=== PATIENT | male | born 2000 | race Caucasian/White ===

== ENCOUNTER 2021-09-16 21:17 | Emergency (ER) | payer BC, OTHER ==
[~2021-09-16] VITALS: Ht 182.9 cm; Wt 61.4 kg
[~2021-09-16 21:17] MED LIST changes: -AMOXICILLIN 8751 TAB PO; -WELLBUTRIN XL300 M1 PO
[2021-09-16 21:26] VITALS: TEMP 98.1
[2021-09-16] MEDS ORDERED: AMOXICILLIN 8751 TAB PO (23:55)
[2021-09-17 00:58] VITALS: BP 115/75; PULSE 90
[2021-09-19] MEDS ORDERED: WELLBUTRIN XL300 M1 PO (12:19)
== END 2021-09-17 00:58 | disposition home or self-care (01) ==
LOC: COL.ER 21:17
DX: S61.531A Puncture wound without foreign body of right wrist, initial encounter (principal); S50.811A Abrasion of right forearm, initial encounter; Z20.3 Contact with and (suspected) exposure to rabies; W55.01XA Bitten by cat, initial encounter

== ENCOUNTER → 2021-09-16 | Outpatient (REF) | payer BC, OTHER ==
[~2021-09-16] VITALS: Ht 182.9 cm; Wt 62.4 kg
[~2021-09-16] MED LIST: AMOXICILLIN 8751 TAB PO; PRILOSEC 20MG20 MG PO; SEROQUEL 1100 MG/TAB PO; WELLBUTRIN XL300 M1 PO
[2021-09-19 12:22] VITALS: BP 125/63; PULSE 93; TEMP 98.1
== END ==
LOC: COL.ER 23:45
DX: Z23 Encounter for immunization (principal); Z20.3 Contact with and (suspected) exposure to rabies

== ENCOUNTER 2021-09-30 16:00 | Outpatient (RCR) | payer BC, OTHER ==
[~2021-09-30] VITALS: Ht 182.9 cm; Wt 63.7 kg
[~2021-09-30 16:00] MED LIST changes: +AMOXICILLIN 8751 TAB PO; +WELLBUTRIN XL300 M1 PO
[2021-09-30 16:16] VITALS: BP 115/45; PULSE 88; TEMP 98.4
== END 2021-09-30 16:49 | disposition home or self-care (01) ==
LOC: EUO 16:00
DX: Z23 Encounter for immunization (principal); S61.551A Open bite of right wrist, initial encounter; W55.01XA Bitten by cat, initial encounter; Y93.89 Activity, other specified

== ENCOUNTER 2022-09-21 10:58 | Emergency (ER) | payer OTHER ==
[~2022-09-21] VITALS: Ht 182.9 cm; Wt 61.4 kg
[2022-09-21 11:02] VITALS: TEMP 97.6
[2022-09-21] MEDS ORDERED: TRULANCE3 MG PO (11:10)
[2022-09-21 12:08] LABS: BASO % 0.4 % (0.0-2.0); EOS % 0.9 % (0.0-4.0); GRAN # 2.8 K/mm3 (1.4-6.5); HEMATOCRIT 44.3 % (42.0-52.0); LYMPH # 1.6 K/mm3 (1.2-3.4); LYMPH % 33.5 % (20.0-51.0); MEAN CELL VOLUME 89 fl (80.0-100.0); MEAN CORPUSCULAR HEMOGLOBIN 32 pg (27-31); MEAN CORPUSCULAR HGB CONC 36 g/dl (33.0-37.0); MEAN PLATELET VOLUME 9.4 fl (7.4-10.4); MONO # 0.3 K/mm3 (0.1-0.6); PLATELET COUNT 183 K/mm3 (130-400); REDCELL DISTRIBUTION WIDTH-CV 11.5 % (11.5-14.5)
[2022-09-21 12:25] LABS: ALANINE AMINOTRANSFERASE 14 U/L (0-55); ALBUMIN 4.6 gm/dL (3.5-5.0); ALKALINE PHOSPHATASE 63 U/L (40-150); ANION GAP 11 mmol/L (7-16); AST,SGOT 13 U/L (5-34); BILIRUBIN,TOTAL 1.1 mg/dL (0.2-1.2); BLOOD UREA NITROGEN 13 mg/dL (9-21); CALCIUM 9.7 mg/dL (8.4-10.2); CARBON DIOXIDE 25 mmol/L (22-29); CHLORIDE 104 mmol/L (98-107); CREATININE, serum 1.01 mg/dL (0.72-1.25); GLUCOSE 83 mg/dL (70-99); POTASSIUM 4.2 mmol/L (3.5-4.5); SODIUM 140 mmol/L (136-145); TOTAL PROTEIN 7.5 gm/dL (6.2-8.1)
[2022-09-21 12:41] LABS: TROPONIN-I < 0.010 ng/mL (0.00-0.033)
[2022-09-21 12:54] LABS: TRICYCLIC ANTIDEPRESS URINE NEGATIVE
[2022-09-21 13:55] VITALS: BP 112/66; PULSE 73
== END 2022-09-21 13:55 | disposition home or self-care (01) ==
LOC: COL.ER 10:58
PROVIDERS: Physician Assistant
DX: I35.9 Nonrheumatic aortic valve disorder, unspecified (principal); K59.00 Constipation, unspecified; F17.290 Nicotine dependence, other tobacco product, uncomplicated
CPT/HCPCS: J1885